=== PATIENT | male | born 1950 | race Asian ===

== ENCOUNTER 2018-03-10 07:47 | Emergency (ER) | payer MEDICARE | END 2018-03-10 09:00 | disposition home or self-care (01) | LOC: D.ER 07:47 | DX: S09.90XA Unspecified injury of head, initial encounter (principal); W22.8XXA Striking against or struck by other objects, initial encounter; Y93.89 Activity, other specified; Y92.019 Unspecified place in single-family (private) house as the place of occurrence of the external cause; Z86.73 Personal history of transient ischemic attack (TIA), and cerebral infarction without residual deficits ==